=== PATIENT | male | born 1995 | race American Indian/Alaskan Native ===

== ENCOUNTER 2019-03-29 18:35 | Emergency (ER) | payer SELFPAY ==
[2019-03-29 19:31] VITALS: BP 113/59
--- NOTE | 2019-03-29 19:34 | Emergency Department Report ---
Blank Doc - Documentation Documentation: 23-year-old male that presents with left sided chest pain. Denies any radiati on. Worse with movement and palpation. Denies SOB. This initial assessment/diagnostic orders/clinical plan/treatment(s) is/are subject to change based on patient's health status, clinical progression and re- assessment by fellow clinical providers in the ED. Further treatment and workup at subsequent clinical providers discretion. Patient/guardians urged not to elope from the ED as their condition may be serious if not clinically assessed and managed. Initial orders include: 1- Patient sent to [facility] for further evaluation and treatment 2- xrays 3- EKG
--- NOTE | 2019-03-29 20:44 | XRay Report ---
CHEST 2 VIEWS INDICATION: Chest pain. COMPARISON: None. FINDINGS: Support devices: None. Heart: Within normal limits. Lungs/Pleura: No acute air space or interstitial disease. No significant pleural effusion. IMPRESSION: No acute findings. Signer Name: Scar Murrell MD Signed: 03/29/2019 8:40 PM Workstation Name: [email or web address]
== END 2019-03-29 22:40 | disposition left against medical advice (07) ==
LOC: ED 18:35
DX: R07.89 Other chest pain (principal); Z53.21 Procedure and treatment not carried out due to patient leaving prior to being seen by health care provider
CPT/HCPCS: 71046; 93005; 93010